=== PATIENT | female | born 1960 | race Caucasian/White ===

== ENCOUNTER → 2018-08-05 | Outpatient (CLI) | payer OTHER | LOC: COL.RAD 12:37 | DX: M25.512 Pain in left shoulder (principal); M25.511 Pain in right shoulder | CPT/HCPCS: J3301; Q9967 ==

== ENCOUNTER → 2018-10-24 | Outpatient (CLI) | payer OTHER | LOC: COL.RAD 10:06 | DX: M25.512 Pain in left shoulder (principal) | CPT/HCPCS: J3301; Q9967 ==

== ENCOUNTER → 2019-04-20 | Outpatient (CLI) | payer OTHER | LOC: COL.RAD 09:37 | DX: M19.011 Primary osteoarthritis, right shoulder (principal) | CPT/HCPCS: J3301; Q9967 ==

== ENCOUNTER → 2020-02-03 | Outpatient (CLI) | payer OTHER | LOC: COL.RAD 08:00 | DX: M25.511 Pain in right shoulder (principal) | CPT/HCPCS: J3301; Q9967 ==

== ENCOUNTER → 2020-12-22 | Outpatient (CLI) | payer OTHER | LOC: COL.RAD 08:32 | DX: M19.011 Primary osteoarthritis, right shoulder (principal) | CPT/HCPCS: J3301; Q9967 ==